=== PATIENT | female | born 1985 | race Two or more races ===

== ENCOUNTER 2023-04-19 17:31 | Inpatient (IN) | payer OTHER ==
[~2023-04-19] VITALS: Ht 160 cm; Wt 81.6 kg
[2023-04-19] MEDS ORDERED: CARAFATE1 GM PO (18:16)
[2023-04-19] MEDS ORDERED: PRILOSEC OTC20 MG PO (18:16)
[2023-04-19] MEDS ORDERED: ZOLOFT25 MG PO (18:17)
--- NOTE | 2023-04-19 18:19 | NUR ---
SE RECIBE PTE ALERTA ORIENTADA X3.PTE REFIERE TENER DOLOR ABDOMINAL NELSON DESDE HOY EN LA MADRUGADA.PTE REFIERE BENNETT PRESENTADO VOMITOS X3.SE DALI S/V Y SE UBICA.
--- NOTE | 2023-04-19 19:57 | NUR ---
SE LE ORIENTA A PTE SOBRE TRATAMIENTO E INSTRUCCIONES A SEGUIR, LORY REFIERE ENTENDER. SE EJECUTA ORDENES MEDICAS UTILIZANDO MEDIDAS ASEPTICAS
--- NOTE | 2023-04-20 07:43 | NUR ---
SE RECIBE PTE ALERTA Y ORIENTADA X 3 EN KIEL [place] DE FAMILIRIAR Y CON RESPUESTA A ESTIMULOS. SE OBSERVA CON LIQUIDOS DE MANTENIMIENTO DE .9NSS/1000ML BAJANDO A 150ML/HR CON ANGIO #18 EN BRAZO LT AREA QUEDA FROYLAN DE EDEMA O ERITEMA.SE OBSERVA POR CAMBIOS CON RONDAS PREVENTIVAS.
[2023-04-20] MEDS ORDERED: DUPIXENT P300 MG/2 M (15:11)
== END 2023-04-26 11:06 | disposition home or self-care (01) | DRG 418 ==
LOC: ER 17:31 → MEDI 04-20 09:12 → MEDJ 04-20 09:12 → SEC-K 04-20 09:12 → MEDJ 04-20 13:11 → MEDI 04-21 15:20
PROVIDERS: General Practice; Internal Medicine Infectious Disease; ADMIT Internal Medicine; ATTEND Internal Medicine
PROC: CF1C1ZZ Planar Nuclear Medicine Imaging of Hepatobiliary System, All using Technetium 99m (Tc-99m) (ICD-10-PCS; 2023-04-20)
PROC: 0FT44ZZ Resection of Gallbladder, Percutaneous Endoscopic Approach (ICD-10-PCS; principal; 2023-04-25)
PROC: BF522Z0 Other Imaging of Gallbladder using Fluorescing Agent, Intraoperative (ICD-10-PCS; 2023-04-25)
DX: K81.0 Acute cholecystitis (principal); N39.0 Urinary tract infection, site not specified; K29.60 Other gastritis without bleeding; K82.A1 Gangrene of gallbladder in cholecystitis